=== PATIENT | female | born 1950 | race Caucasian/White ===

== ENCOUNTER 2019-02-04 21:59 | Emergency (ER) | payer MEDICARE ==
[2019-02-04] MEDS ORDERED: Aspirin 81 MG Tab.Chew PO ONE (22:24)
[2019-02-04] MEDS ORDERED: Aspirin 81 MG Tab.Chew ONE (22:25)
--- NOTE | 2019-02-04 22:49 | EDM.PDOC ---
ED HPI GENERAL MEDICAL PROBLEM - General Chief Complaint: General Stated Complaint: irregular heart rate Time Seen by Provider: 02/04/19 22:30 Source of Information: Reports: Patient History Limitations: Reports: No Limitations - History of Present Illness INITIAL COMMENTS - FREE TEXT/NARRATIVE: This patient presents to the ED for evaluation of irregular heart beat. She states she was sitting in her rocking chair at home when she began having a fluttering feeling in her chest accompanied by chest pressure. She started to feel anxious and took her blood pressure with an automatic device that registered it quite high. 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 She states she has been on diltiazem for this and has episodes twice per month on average. She states this episode tonight felt different as it was accompanied by the chest pressure. She states she actually feels some better now that she is here. She also has a mild headache but denies other symptoms including difficulty breathing, nausea, vomiting, back pain, pain with urination, recent illnesses of fever. - Related Data Allergies Allergy/AdvReac Type Severity Reaction Status Date / Time Penicillins Allergy Other Verified 02/04/19 22:51 soap Allergy Rash Verified 02/04/19 22:51 atorvastatin [From Lipitor] AdvReac Muscle Verified 02/04/19 22:51 Aches Hair Dye Allergy Rash Uncoded 02/04/19 22:51 Lotion Allergy Rash Uncoded 02/04/19 22:51 Make Up Allergy Rash Uncoded 02/04/19 22:51 ED ROS GENERAL - Review of Systems Review Of Systems: See Below Constitutional: Denies: Fever, Diaphoresis HEENT: Reports: No Symptoms Respiratory: Denies: Shortness of Breath, Cough Cardiovascular: Reports: Palpitations, Other (chest pressure). Denies: Chest Pain, Blood Pressure Problem, Dyspnea on Exertion GI/Abdominal: Denies: Abdominal Pain, Nausea, Vomiting Musculoskeletal: Reports: No Symptoms Skin: Reports: No Symptoms Neurological: Reports: No Symptoms Psychiatric: Reports: No Symptoms Hematologic/Lymphatic: Reports: No Symptoms ED EXAM, GENERAL - Physical Exam Exam: See Below Exam Limited By: No Limitations General Appearance: Alert, WD/WN, No Apparent Distress, Other (mildly anxious) Eye Exam: Bilateral Eye: PERRL Ears: Normal External Exam Nose: Normal Inspection Throat/Mouth: Normal Inspection Head: Atraumatic, Normocephalic Neck: Supple, Non-Tender, Full Range of Motion. No: Carotid Bruit Respiratory/Chest: No Respiratory Distress, Lungs Clear, Normal Breath Sounds, No Accessory Muscle Use, Chest Non-Tender Cardiovascular: Regular Rate, Rhythm, No Edema, No Gallop, No JVD, No Murmur, No Rub. No: JVD Back Exam: Full Range of Motion Extremities: Normal Inspection, Normal Range of Motion, Non-Tender, No Pedal Edema Neurological: Alert, Oriented Psychiatric: Normal Affect, Normal Mood Skin Exam: Warm, Dry, Intact EKG INTERPRETATION EKG Date: 02/04/19 Time: 22:18 Rhythm: NSR Rate (Beats/Min): 78 [place]: Normal P-Wave: Present QRS: Normal ST-T: Normal QT: Normal EKG Interpretation Comments: occasional PVCs Course - Vital Signs Last Recorded V/S: Last Vital Signs Temp 36.7 C 02/04/19 22:12 Pulse 68 02/04/19 23:01 Resp 18 02/04/19 22:12 BP 143/73 H 02/04/19 23:01 Pulse Ox 94 L 02/04/19 22:27 - Orders/Labs/Meds Orders: Active Orders 24 hr Category Date Time Status EKG Documentation Completion [RC] ASDIRECTED Care 02/04/19 22:43 Active Labs: Laboratory Tests 02/04/19 02/04/19 Range/Units 22:30 22:30 WBC 7.8 (4.0-11.0) K/uL RBC 4.94 (3.80-5.80) M/uL Hgb 15.1 (11.5-16.5) g/dL Hct 44.8 (37.0-47.0) % MCV 91 (76-96) fL MCH 30.6 (27.0-32.0) pg MCHC 33.7 (31.0-35.0) g/dL RDW 13.3 (11.0-16.0) % Plt Count 239 (150-500) K/uL MPV 10.8 H (6.0-10.0) fL Neut % (Auto) 70.1 H (45.0-70.0) % Lymph % (Auto) 17.8 L (20.0-40.0) % Towns % (Auto) 9.7 (3.0-10.0) % Eos % (Auto) 1.8 (1.0-5.0) % Baso % (Auto) 0.6 H (0.0-0.5) % Neut # (Auto) 5.49 (2.00-7.50) K/uL Lymph # (Auto) 1.39 L (1.50-4.00) K/uL Towns # (Auto) 0.76 (0.20-0.80) K/uL Eos # (Auto) 0.14 (0.04-0.40) K/uL Baso # (Auto) 0.05 (0.02-0.10) K/uL Sodium 141 (136-145) mmol/L Potassium 3.7 (3.5-5.1) mmol/L Chloride 105 (98-107) mmol/L Carbon Dioxide 25.5 (21.0-32.0) mmol/L Anion Gap 14.2 (5.0-15.0) mmol/L BUN 16 (8-26) mg/dL Creatinine 0.85 (0.55-1.02) mg/dL Est Cr Clr Drug Dosing TNP Estimated GFR (MDRD) > 60 (>60) MLS/MIN BUN/Creatinine Ratio 18.8 (6-25) Glucose 150 H (74-100) mg/dL Calcium 8.4 L (8.5-10.1) mg/dL Troponin I < 0.017 (0.000-0.060) ng/mL - Radiology Interpretation Free Text/Narrative:: This patient presents with chest tightness and an irregular heart beat. The work up in the ED is thus far negative with the exception of occasional PVCs on EKG. The differential diagnosis of chest pressure is broad and includes life threatening etiologies such as acute coronary syndrome, myocardial infarction, pulmonary embolism, acute aortic dissection, amongst others. Other causes may include pneumonia, pneumothorax, chest wall source, pericarditis, pleurisy, esophageal spasm, etc. No serious etiology for the chest tightness were detected today during this visit. Workup included labs and EKG. The patient admits to feeling anxious when she was experiencing more frequent irregular heart beats and states she does feel better. We discussed an overnight observation admission for cardiac monitoring but the patient felt comfortable in going home. Close follow up with primary care is indicated should the discomfort and irregular heart beat continue, as further work up may be performed; this was made clear to the patient, who understands. Departure - Departure Time of Disposition: 23:15 Disposition: Home, Self-Care 01 Preliminary Cause of *Q: Cardiac Arrest Condition: Good Clinical Impression: PVCs (premature ventricular contractions) - Discharge Information *PRESCRIPTION DRUG MONITORING PROGRAM REVIEWED*: No *COPY OF PRESCRIPTION DRUG MONITORING REPORT IN PATIENT TARIQ: No Instructions: Palpitations Referrals: PCP,None [Primary Care Provider] - Forms: ED Department Discharge Additional Instructions: Keep your appointment on Thursday with your primary provider. Seek medical attention if you develop any chest pain, shortness of breath, frequent heart palpations, or N/V. Keep monitoring your blood pressure at home. - My Orders Last 24 Hours: My Active Orders 02/04/19 22:43 EKG Documentation Completion [RC] ASDIRECTED - Assessment/Plan Last 24 Hours: My Active Orders 02/04/19 22:43 EKG Documentation Completion [RC] ASDIRECTED
== END 2019-02-04 23:20 | disposition home or self-care (01) ==
LOC: LB.ED 21:59
DX: I49.3 Ventricular premature depolarization (principal); Z88.0 Allergy status to penicillin; Z91.048 Other nonmedicinal substance allergy status
CPT/HCPCS: 36415; 80048; 84484; 85025; 93005; 99284; A9270